=== PATIENT | female | born 1960 | race African-American/Black ===

== ENCOUNTER 2017-02-06 21:29 | Emergency (ER) | payer MEDICARE, OTHER ==
[~2017-02-06] VITALS: Ht 167.6 cm; Wt 63.5 kg
[~2017-02-06 21:29] MED LIST: BACITRACIN15 GM TOPIC; CEPHALEXIN500 MG ORAL; IBUPROFEN600 MG ORAL; NKM; NORCO 5-325 TA1 EAC1 ORAL
[2017-02-06 21:40] VITALS: BP 151/87
--- NOTE | 2017-02-06 21:55 | Emergency Room Report ---
History of Present Illness General Chief Complaint: Chest Pain Source: Patient Present Illness HPI Is a 56-year-old female with history of pelvic pain from her fibroid. She presents with chief complaint of chest patient's breath for 2 days. Midsternal area. No radiation. Nothing made it better. Nothing made it worse. No exertional component. No radiation. No diaphoresis. Pain is 8/10. Fell anxious. Denies any other complaint. Allergies: Coded Allergies: PENICILLINS (Unverified Allergy, Unknown, 02/06/17) Uncoded Allergies: PENECILLIN (Allergy, Unknown, 04/21/16) Patient History Past Medical History: see triage record, old chart reviewed Past Surgical History: other Pertinent Family History: none Social History: Denies: smoking Last Menstrual Period: NO MORE PERIOD Now: No Immunizations: other Reviewed Nursing Documentation: PMH: Agreed, PSxH: Agreed Review of Systems Eye: Denies: blurred vision, eye pain ENT: Denies: ear pain, nose congestion, throat swelling Respiratory: Reports: shortness of breath, Denies: cough Cardiovascular: Reports: chest pain, Denies: palpitations Gastrointestinal: Denies: abdominal pain, diarrhea, nausea, vomiting Musculoskeletal: Denies: back pain, joint pain Skin: Denies: rash Neurological: Denies: headache, numbness Endocrine: Denies: increased thirst, increased urine Hematologic/Lymphatic: Denies: easy bruising All Other Systems: negative except mentioned in HPI Physical Exam Vital Signs Date Time Temp Pulse Resp B/P Pulse Ox O2 Delivery O2 Flow Rate FiO2 02/06/17 21:34 98.6 80 18 151/87 98 Room Air vitals normal Sp02 EP Interpretation: reviewed, normal General Appearance: well appearing, no apparent distress, alert Head: normocephalic, atraumatic Eyes: bilateral eye EOMI, bilateral eye PERRL ENT: hearing grossly normal, normal pharynx Neck: full range of motion, supple, no meningismus Respiratory: chest non-tender, lungs clear, normal breath sounds Cardiovascular #1: regular rate, rhythm, no murmur Gastrointestinal: normal bowel sounds, non tender, no mass, no organomegaly, no bruit, non-distended Musculoskeletal: back normal, gait/station normal, normal range of motion Neurologic: alert, oriented x3 Psychiatric: anxious Skin: warm/dry Medical Decision Making Diagnostic Impression: Primary Impression: Chest pain Qualified Codes: R07.9 - Chest pain, unspecified ER Course She presents with chest pain also generalized pain she take his been ongoing for years. She is requesting Demerol shot. Explained to the patient that we do not give Demerol here in the ER. She then started asking for [place] 10 mg. she refused Ativan and aspirin. Only once pain medication. I gave her Toradol. patient is laying in bed comfortably. She asked the nurse for breathing treatment. I explained to the patient that her oxygenation is 100% on room air. Her lungs are clear. Her chest x-ray is clear. She has no respiratory distress or tachypnea. She does not need a breathing treatment. Because patient is not getting her pain medication or breathing treatment, she said she wants to leave. she is competent to leave AGAINST MEDICAL ADVICE. She is refusing to give a urine sample or taking the appropriate medication. Explained to the patient that she may have a serious condition that may be life- threatening. Patient keep insisting that she knows her body and wants breathing treatment. Again I see no clinical indication for this. patient left without signing paperwork. Her pain been ongoing for 2 days. I suspect is more anxiety component to this. Troponin negative. No evidence of ACS, PE, pneumonia,dissection to name a few. she has no risk factors for PE or DVT. She's not tachypneic or tachycardic. Nontoxic. Lab Results Impression labs normal EKG Diagnostic Results EKG Time: 21:55 Rate: normal Rhythm: NSR ST Segments: no acute changes Rhythm Strip Diag. Results Rhythm Strip Time: 21:55 EP Interpretation: yes Rate: 70 Rhythm: NSR, no PVC's, no ectopy Chest X-Ray Diagnostic Results Chest X-Ray Diagnostic Results : Chest X-Ray Ordered: Yes # of Views/Limited/Complete: 1 View Indication: Chest Pain EP Interpretation: Yes Interpretation: no consolidation, no effusion, no pneumothorax, no acute cardiopulmonary disease Impression: No acute disease Last Vital Signs Date Time Temp Pulse Resp B/P Pulse Ox O2 Delivery O2 Flow Rate FiO2 02/06/17 21:34 98.6 80 18 151/87 98 Room Air Status: improved Disposition: AGAINST MEDICAL ADVICE Condition: Stable CARMITA LOZA M.D. Feb 06, 2017 21:55
[2017-02-06] MEDS ORDERED: Aspirin Baby 81mg ORAL ONE (22:00)
[2017-02-06] MEDS ORDERED: LORazepam Inj 2mg/ml 1ml IV ONE (22:00)
[2017-02-06] MEDS ORDERED: Ketorolac 30mg Inj IV ONE (22:45)
[2017-02-06 23:14] VITALS: BP 151/87
[2017-02-06 23:26] LABS: BASOPHILS % (AUTO) 1.2 % (0.0-2.0); EOSINOPHILS % (AUTO) 0.6 % (0.0-3.0); LYMPHOCYTES % (AUTO) 26.4 % (20.0-45.0); MEAN CORPUSCULAR HEMOGLOBIN 29.1 PG (27.0-31.0); MEAN CORPUSCULAR HGB CONC 32.8 G/DL (32.0-36.0); MEAN CORPUSCULAR VOLUME 89 FL (80-99); MEAN PLATELET VOLUME 6.8 FL (6.5-10.1); MONOCYTES % (AUTO) 5.6 % (1.0-10.0); NEUTROPHILS % (AUTO) 66.3 % (45.0-75.0); PLATELET COUNT 219 K/UL (150-450); RED BLOOD COUNT 4.38 M/UL (4.20-5.40); RED CELL DISTRIBUTION WIDTH 14.1 % (11.6-14.8); WHITE BLOOD COUNT 7.6 K/UL (4.8-10.8)
[2017-02-06 23:53] LABS: TROPONIN I < 0.30 ng/mL (<=0.30)
[2017-02-06 23:56] LABS: ALANINE AMINOTRANSFERASE 13 U/L (3-33); ALBUMIN/GLOBULIN RATIO 1.7 (1.0-2.7); ANION GAP 11 (5-15); ASPARTATE AMINO TRANSFERASE 11 U/L (5-40); CALCIUM 9.6 mg/dL (8.6-10.2); CARBON DIOXIDE 29 mEQ/L (20-30); CHLORIDE 104 mEQ/L (98-107); GLOMERULAR FILTRATION RATE > 60 mL/min (>60); HEMOLYSIS 6; POTASSIUM 3.7 mEQ/L (3.4-4.9); SODIUM 144 mEQ/L (135-145); TOTAL PROTEIN 7.2 g/dL (6.6-8.7)
[2017-02-07 00:07] LABS: CKMB < 1.5 ng/mL (< 3.8)
--- NOTE | 2017-02-08 16:21 | Cardiology Report ---
APPROVED REPORT EKG Measurement Heart [id number] Normal sinus rhythm Nonspecific T wave abnormality Abnormal ECG
--- NOTE | 2017-02-10 09:02 | Diagnostic Imaging Report ---
Indication: Chest pain Technique: XRAY CHEST 1 V Comparison: None. Findings: The cardiomediastinal silhouette is normal. The lungs are clear. There is no evidence of pleural fluid. There is mild scoliosis of the thoracic spine convex to the right. Impression: Mild scoliosis convex to the right. This could be positional. Otherwise negative chest.
== END 2017-02-06 23:14 | disposition left against medical advice (07) ==
LOC: EMR 21:59
DX: R07.9 Chest pain, unspecified (principal); R52 Pain, unspecified; R06.02 Shortness of breath; Z88.0 Allergy status to penicillin
CPT/HCPCS: 36415; 71010; 80053; 82550; 82553; 83880; 84484; 85025; 93005; 96374; 99284; J1885

== ENCOUNTER 2018-04-22 01:31 | Emergency (ER) | payer MEDICARE, OTHER ==
[~2018-04-22] VITALS: Ht 165.1 cm; Wt 54.9 kg
[2018-04-22 01:40] VITALS: BP 183/93
--- NOTE | 2018-04-22 02:08 | Emergency Room Report ---
History of Present Illness General Chief Complaint: Earache Source: Patient Present Illness HPI Is a 58-year-old female with no past mental history. She presents with chief complaint right ear pain. His been ongoing for [address] stallings. She finished a course of [place] and isn't flushing it with hydroperoxide without much relief. Pain is 10 out of 10. Nothing made it better. Any movement made it worse. Denies any trauma. No drainage. This is a chronic problem for her. Allergies: Coded Allergies: PENICILLINS (Unverified Allergy, Unknown, 02/06/17) Uncoded Allergies: PENECILLIN (Allergy, Unknown, 04/21/16) Patient History Past Medical History: none, see triage record, old chart reviewed Past Surgical History: other Pertinent Family History: none Social History: Denies: smoking Last Menstrual Period: 2007 Now: No Immunizations: other Reviewed Nursing Documentation: PMH: Agreed; PSxH: Agreed Nursing Documentation-PMH Past Medical History: No Stated History Review of Systems Eye: Denies: eye pain, blurred vision ENT: Reports: ear pain; Denies: nose congestion, throat swelling Respiratory: Denies: cough, shortness of breath Cardiovascular: Denies: chest pain, palpitations Gastrointestinal: Denies: abdominal pain, diarrhea, nausea, vomiting Musculoskeletal: Denies: back pain, joint pain Skin: Denies: rash Neurological: Denies: headache, numbness Endocrine: Denies: increased thirst, increased urine Hematologic/Lymphatic: Denies: easy bruising All Other Systems: negative except mentioned in HPI Physical Exam Vital Signs Date Time Temp Pulse Resp B/P (MAP) Pulse Ox O2 Delivery O2 Flow Rate FiO2 04/22/18 01:40 98.6 66 16 183/93 98 Room Air 98.6 vitals with high blood pressure Sp02 EP Interpretation: reviewed, normal General Appearance: well appearing, alert, thin Head: normocephalic, atraumatic Eyes: bilateral eye PERRL, bilateral eye EOMI ENT: hearing grossly normal, normal pharynx, other - right ear impacted with cerumen Neck: full range of motion, supple, no meningismus Respiratory: chest non-tender, lungs clear, normal breath sounds Cardiovascular #1: regular rate, rhythm, no murmur Gastrointestinal: normal bowel sounds, non tender, no mass, no organomegaly, no bruit, non-distended Musculoskeletal: back normal, gait/station normal, normal range of motion Psychiatric: mood/affect normal Skin: warm/dry Procedures Additional Procedure Procedure Narrative Procedure: Cerumen disimpaction Indication: Cerumen impaction Description: I irrigated the ear with water. Large amount of cerumen removed. On reexamination the eardrum is erythematous. There is edema and maceration of the skin to the canal. No perforation. Patient tolerated procedure without a problem. Medical Decision Making Diagnostic Impression: Primary Impression: Otitis media of right ear Qualified Codes: H66.91 - Otitis media, unspecified, right ear Additional Impressions: Otitis externa of right ear Qualified Codes: H60.501 - Unspecified acute noninfective otitis externa, right ear Impacted cerumen of right ear ER Course Patient presents with cerumen impaction with otitis externa. There is some evidence of otitis media also. Patient felt much better now. We'll discharge home. Last Vital Signs Date Time Temp Pulse Resp B/P (MAP) Pulse Ox O2 Delivery O2 Flow Rate FiO2 04/22/18 01:40 98.6 66 16 183/93 98 Room Air 98.6 Status: improved Disposition: HOME, SELF-CARE Condition: Stable Scripts Ibuprofen* (MOTRIN*) 600 Mg Tablet 600 MG ORAL THREE TIMES A DAY, #30 TAB 0 Refills Prov: Yonis Lassiter MD 04/22/18 Ciprofloxacin Hcl/Dexameth (CIPRODEX OTIC SUSPENSION) 7.5 Ml Drops.susp 4 DROP RIGHT EAR TWICE A DAY, #10 ML Prov: Yonis Lassiter MD 04/22/18 Azithromycin* (ZITHROMAX*) 250 Mg Tablet 250 MG ORAL DAILY, #6 TAB 0 Refills Take two tables once daily for 1 day, then one tablet once daily for 4 days. Prov: Yonis Lassiter MD 04/22/18 Patient Instructions: Otitis Externa, [id number], Otitis Media, Adult, Easy- to-Read Additional Instructions: Follow-up with your doctor in 7 days. Return if symptom worsen. Yonis Lassiter MD Apr 22, 2018 02:08
[2018-04-22 02:30] VITALS: BP 143/90
[2018-04-22] MEDS ORDERED: Norco 5mg/325mg tab ORAL ONE (02:30)
[2018-04-22] MEDS ORDERED: IBUPROFEN600 MG ORAL (02:32)
[2018-04-22] MEDS ORDERED: ZITHROMAX250 MG ORAL (02:32)
[2018-04-22] MEDS ORDERED: CIPRODEX OTIC7.5 M1 RIGHT EAR (02:32)
== END 2018-04-22 02:45 | disposition home or self-care (01) ==
LOC: EMR 02:00 → EDBD 02:00 → EMR 02:45
DX: H66.91 Otitis media, unspecified, right ear (principal); H60.91 Unspecified otitis externa, right ear; H61.21 Impacted cerumen, right ear; Z88.0 Allergy status to penicillin
CPT/HCPCS: 69210; 99283

== ENCOUNTER 2019-08-10 18:20 | Inpatient (IN) | payer MEDICARE, OTHER ==
[~2019-08-10] VITALS: Ht 165.1 cm; Wt 62.9 kg
[~2019-08-10 18:20] MED LIST changes: +CIPRODEX OTIC7.5 M1 RIGHT EAR; +NORCO 5-325 TA1 EACH ORAL; +PROMETHAZINE-D118 ML ORAL; +ZITHROMAX250 MG ORAL
[2019-08-10 18:35] VITALS: BP 139/81
--- NOTE | 2019-08-10 18:35 | NUR ---
ED Nurse Note: PT WALKED IN FROM HER DOCTOR'S OFFICE DUE TO MEDIAL CP AND NON RADIATING X 3-4 DAYS. ALSO REPORTS LIGHTHEADEDNESS AND FEELING WEAK. STATES EPISODES OF N/V. AAO X4, AMBULATORY WITH NON LABORED BREATHING.
--- NOTE | 2019-08-10 18:41 | Emergency Room Report ---
History of Present Illness General Chief Complaint: Chest Pain Source: Patient Present Illness HPI 60-year-old female history of hypertension history of smoking history times years, presents with cough, shortness of breath, sputum production, chest pain x3 days worsened with exertion alleviated with rest severity is moderate, constant, she states the pain is left-sided tightness no nausea no vomiting patient was sent from her primary care doctor today due to depressions in her inferior leads concerning for ischemic disease Allergies: Coded Allergies: PENICILLINS (Unverified Allergy, Unknown, 02/06/17) Uncoded Allergies: PENECILLIN (Allergy, Unknown, 04/21/16) Patient History Past Medical History: see triage record Social History: Reports: smoking Reviewed Nursing Documentation: PMH: Agreed; PSxH: Agreed Nursing Documentation-PMH Past Medical History: No History, Except For Hx Neurological Problems: Yes - SCHIZO, DEPRESSION Review of Systems All Other Systems: negative except mentioned in HPI Physical Exam Vital Signs Date Time Temp Pulse Resp B/P (MAP) Pulse Ox O2 Delivery O2 Flow Rate FiO2 08/10/19 18:25 97.5 86 19 117/72 (87) 95 Room Air Sp02 EP Interpretation: reviewed, normal General Appearance: well appearing, no apparent distress, alert Head: normocephalic, atraumatic Eyes: bilateral eye PERRL, bilateral eye EOMI ENT: uvula midline, moist mucus membranes Neck: supple, thyroid normal, supple/symm/no masses Respiratory: lungs clear, no respiratory distress, no retraction, no accessory muscle use Cardiovascular #1: normal peripheral pulses, regular rate, rhythm, no edema, no gallop, no murmur Gastrointestinal: non tender, soft, no guarding, no rebound Musculoskeletal: normal inspection Neurologic: alert, oriented x3 Psychiatric: mood/affect normal Skin: no rash, warm/dry Medical Decision Making Diagnostic Impression: Primary Impression: Chest pain Qualified Codes: R07.9 - Chest pain, unspecified Additional Impression: COPD with exacerbation ER Course 60-year-old female presents with chest pain differential diagnosis include COPD exacerbation, ACS, pneumothorax, pneumonia Patient makes most likely with a mixed picture given the fact that she is been sick over the past 3 days may have some form of demand ischemia patient with dynamic changes on EKG comparing current EKG to clinic EKG there are dynamic changes in 2 3 aVF With depressions resolving in current EKG conducted at 1836 aspirin, steroids, Duo nebs given to the patient nitroglycerin also given to patient Plan to admit patient for chest pain rule out Patient admitted to Dr. Babin Laboratory Tests Test 08/10/19 18:40 White Blood Count 4.1 K/UL (4.8-10.8) L Red Blood Count 5.07 M/UL (4.20-5.40) Hemoglobin 13.9 G/DL (12.0-16.0) Hematocrit 45.3 % (37.0-47.0) Mean Corpuscular Volume 89 FL (80-99) Mean Corpuscular Hemoglobin 27.4 PG (27.0-31.0) Mean Corpuscular Hemoglobin Concent 30.6 G/DL (32.0-36.0) L Red Cell Distribution Width 13.9 % (11.6-14.8) Platelet Count 192 K/UL (150-450) Mean Platelet Volume 8.1 FL (6.5-10.1) Neutrophils (%) (Auto) 63.5 % (45.0-75.0) Lymphocytes (%) (Auto) 19.4 % (20.0-45.0) L Monocytes (%) (Auto) 14.9 % (1.0-10.0) H Eosinophils (%) (Auto) 0.0 % (0.0-3.0) Basophils (%) (Auto) 2.2 % (0.0-2.0) H Prothrombin Time 10.1 SEC (9.30-11.50) Prothrombin Time INR 0.9 (0.9-1.1) Activated Partial Thromboplast Time 29 SEC (23-33) Sodium Level 137 MMOL/L (136-145) Potassium Level 3.9 MMOL/L (3.5-5.1) Chloride Level 98 MMOL/L (98-107) Carbon Dioxide Level 27 MMOL/L (21-32) Anion Gap 12 mmol/L (5-15) Blood Urea Nitrogen 28 mg/dL (7-18) H Creatinine 2.6 MG/DL (0.55-1.30) H Estimate Glomerular Filtration Rate 22.5 mL/min (>60) Glucose Level 119 MG/DL (74-106) H Calcium Level 9.4 MG/DL (8.5-10.1) Total Bilirubin 0.4 MG/DL (0.2-1.0) Aspartate Amino Transferase (AST) 20 U/L (15-37) Alanine Aminotransferase (ALT) 36 U/L (12-78) Alkaline Phosphatase 66 U/L (46-116) Troponin I 0.000 ng/mL (0.000-0.056) Pro-B-Type Natriuretic Peptide 117 pg/mL (0-125) Total Protein 8.2 G/DL (6.4-8.2) Albumin 4.2 G/DL (3.4-5.0) Globulin 4.0 g/dL Albumin/Globulin Ratio 1.0 (1.0-2.7) Lipase 121 U/L (73-393) EKG Diagnostic Results EKG Time: 18:36 EP Interpretation: NSR, rate 75, QTc 393, no acute ST elevations, flipped T waves in 3 and aVF Rhythm Strip Diag. Results Rhythm Strip Time: 18:40 EP Interpretation: yes Rate: 73 Rhythm: NSR, no PVC's, no ectopy Chest X-Ray Diagnostic Results Chest X-Ray Diagnostic Results : Chest X-Ray Ordered: Yes # of Views/Limited/Complete: 1 View Indication: Chest Pain EP Interpretation: Yes Interpretation: no consolidation, no effusion, no pneumothorax, no acute cardiopulmonary disease Impression: No acute disease Electronically Signed by: Jose Manuel Zapien MD Last Vital Signs Date Time Temp Pulse Resp B/P (MAP) Pulse Ox O2 Delivery O2 Flow Rate FiO2 08/10/19 18:25 97.5 86 19 117/72 (87) 95 Room Air Disposition: ADMITTED INPATIENT Condition: Stable Jose Manuel Zapien MD Aug 10, 2019 18:41
--- NOTE | 2019-08-10 18:41 | NUR ---
ED Nurse Note: COLLECTED BLOOD SPECIMEN THEN SENT.
[2019-08-10] MEDS ORDERED: fentaNYL 100 mcg/2 mL IV ONE (18:45)
[2019-08-10] MEDS ORDERED: Ipratropium 0.02% Inh Soln 2.5ml UD HHN ONE (18:45)
[2019-08-10] MEDS ORDERED: Albuterol ud Inhalation HHN ONE (18:45)
[2019-08-10] MEDS ORDERED: Solu-MEDROL 125mg Inj IVP ONE (18:45)
[2019-08-10] MEDS ORDERED: Nitroglycerin 2% oint pkt TOPIC ONE (18:45)
[2019-08-10 18:54] LABS: BASOPHILS % (AUTO) 2.2 % (0.0-2.0); HEMATOCRIT 45.3 % (37.0-47.0); HEMOGLOBIN 13.9 G/DL (12.0-16.0); LYMPHOCYTES % (AUTO) 19.4 % (20.0-45.0); MEAN CORPUSCULAR VOLUME 89 FL (80-99); MONOCYTES % (AUTO) 14.9 % (1.0-10.0); NEUTROPHILS % (AUTO) 63.5 % (45.0-75.0); PLATELET COUNT 192 K/UL (150-450); RED BLOOD COUNT 5.07 M/UL (4.20-5.40); RED CELL DISTRIBUTION WIDTH 13.9 % (11.6-14.8); WHITE BLOOD COUNT 4.1 K/UL (4.8-10.8)
[2019-08-10 19:04] LABS: INR 0.9 (0.9-1.1)
[2019-08-10 19:18] LABS: ANION GAP 12 mmol/L (5-15); BLOOD UREA NITROGEN 28 mg/dL (7-18); CALCIUM 9.4 MG/DL (8.5-10.1); CARBON DIOXIDE 27 MMOL/L (21-32); CHLORIDE 98 MMOL/L (98-107); CREATININE 2.6 MG/DL (0.55-1.30); POTASSIUM 3.9 MMOL/L (3.5-5.1); SODIUM 137 MMOL/L (136-145)
--- NOTE | 2019-08-10 19:21 | NUR ---
HAND-OFF: Report given to MITCHEL ROBERTS RN.
--- NOTE | 2019-08-10 19:22 | NUR ---
ED Nurse Note: received report from Nayana WINTER. emory bull. will continue to monitor patient.
[2019-08-10 19:28] LABS: ALANINE AMINOTRANSFERASE 36 U/L (12-78); ALBUMIN 4.2 G/DL (3.4-5.0); ALKALINE PHOSPHATASE 66 U/L (46-116); ASPARTATE AMINO TRANSFERASE 20 U/L (15-37); BILIRUBIN,TOTAL 0.4 MG/DL (0.2-1.0)
[2019-08-10 19:53] VITALS: BP 133/74
--- NOTE | 2019-08-10 20:02 | NUR ---
ED Nurse Note: provided patient with sandwich
[2019-08-10] MEDS ORDERED: ASPIR 8181 MG ORAL (20:09)
--- NOTE | 2019-08-10 20:20 | NUR ---
ED Nurse Note: patient c/o 8/10 pain and requested for pain medication. ERMD notified. Will carry out order.
[2019-08-10] MEDS ORDERED: Morphine Sulfate 4mg/ml Inj (IV USE ONLY) IVP ONE (20:30)
--- NOTE | 2019-08-10 20:47 | NUR ---
ED Nurse Note: gave report to Jarod WINTER for 219-1.
--- NOTE | 2019-08-10 20:50 | NUR ---
NURSE NOTES: Received patient from ED. Patient on room air, no signs of respiratory distress. O2sat 93%. Patient transferred herself safely to bed. Oriented patient to the unit. Call light within reach. Bed in low position, locked, bed alarm on. Patient is alert but oriented to self, place and situation. Patient endorses memory difficulties and could not remember the year or the day of the week. Poor historian. Could not recall prescribed medications. Denies taking any medications at home. According letter from family physician's office, patient has a history of schizophrenia, depression, benign colon polyps, and pelvic fibroid. Current Medications are seroquel, prozac, and norco.
--- NOTE | 2019-08-10 20:50 | NUR ---
TRANSFER TO FLOOR: Patient transferred to [facility] via gurney in stable condition accompanied by 1 rn 1tech as ordered, per dr. Babin. Report given to Jarod WINTER. Belongings sent with patient
[2019-08-10 21:10] VITALS: BP 151/87
--- NOTE | 2019-08-10 21:15 | NUR ---
NURSE NOTES: Received admitting orders from Dr. Babin, ordered to place on 2L NC. Administered O2 at 2L NC.
[2019-08-10] MEDS: HYDROcodone/Acetamin 10/325 tab ORAL PRN (22:37)
[2019-08-11] VITALS: BP 149/64
[2019-08-11] MEDS: HYDROcodone/Acetamin 10/325 tab ORAL PRN ×3 (03:04→15:24)
--- NOTE | 2019-08-11 03:15 | NUR ---
NURSE NOTES: Patient upset and complained that nobody is doing anything about her cold. States that is the reason she came in. Patient complains of painful cough and difficulty clearing secretions and wants cough medicine with codeine. Notified Dr. Babin requesting cough syrup with codeine for the patient.
[2019-08-11 04:00] VITALS: BP 146/79
--- NOTE | 2019-08-11 04:13 | NUR ---
NURSE NOTES: Left another message for Dr. Babin requesting orders.
[2019-08-11] MEDS ORDERED: Albuterol ud Inhalation HHN PRN (05:45)
[2019-08-11] MEDS: guaiFENesin w/Codeine 5ml Liq ud ORAL PRN ×2 (06:03→15:23)
--- NOTE | 2019-08-11 06:30 | NUR ---
NURSE NOTES: Notified Dr. Villavicencio, stat echo ordered.
--- NOTE | 2019-08-11 06:47 | NUR ---
NURSE NOTES: Notified Dr. Babin regarding abnormal ECG this morning, sinus ted HR 44. Instructed to do consult with Dr. Villavicencio.
--- NOTE | 2019-08-11 07:09 | NUR ---
HAND-OFF: Report given to Sherry WINTER. Plan of care endorsed.
--- NOTE | 2019-08-11 07:10 | NUR ---
NURSE NOTES: Nurse report give by MOY Olivera. Patient's sitting in bed, eating breakfast, eyes open spontaneously, AO x 3, complains of sore throat, but no s/s of distress or SOB. Patient's on 2L nasal cannula, breathing unlabored and regular. IV is saline locked, flushed patent and asymptomatic. Bed low and locked, call light within reach, side rails x 2, bed alarm is armed, financial agent is on. Will continue to monitor.
[2019-08-11 07:11] LABS: ANION GAP 10 mmol/L (5-15); BLOOD UREA NITROGEN 27 mg/dL (7-18); CALCIUM 9.2 MG/DL (8.5-10.1); CARBON DIOXIDE 27 MMOL/L (21-32); CHLORIDE 104 MMOL/L (98-107); CREATININE 1.5 MG/DL (0.55-1.30); POTASSIUM 4.1 MMOL/L (3.5-5.1); SODIUM 141 MMOL/L (136-145)
[2019-08-11 08:00] VITALS: BP 122/70
[2019-08-11] MEDS: Aspirin Baby 81mg ORAL SCH (08:44)
[2019-08-11] MEDS: FLUoxetine 10mg cap ORAL SCH (08:44)
[2019-08-11] MEDS: Heparin 5000 units/ml inj SUBQ SCH ×2 (08:50→20:45)
--- NOTE | 2019-08-11 09:37 | Cardiac Electrophysiology PN ---
Subjective Subjective CP, ECG inferior T wave inversion, bradycardia [id number] Objective Last 24 Hour Vital Signs Date Time Temp Pulse Resp B/P (MAP) Pulse Ox O2 Delivery O2 Flow Rate FiO2 08/11/19 09:27 98.1 08/11/19 08:00 98.1 59 18 122/70 (87) 100 08/11/19 08:00 59 08/11/19 04:00 54 08/11/19 04:00 98.0 78 18 146/79 (101) 97 08/11/19 00:00 64 08/11/19 00:00 98.1 60 18 149/64 (92) 97 08/10/19 21:41 67 08/10/19 21:10 97.5 75 20 151/87 (108) 93 08/10/19 21:00 Nasal Cannula 2.0 Nasal Cannula 2.0 08/10/19 20:50 98.3 74 15 133/74 98 Room Air 08/10/19 19:53 97.7 75 15 133/74 98 Room Air 21 08/10/19 19:30 97.7 08/10/19 19:14 75 12 98 Room Air 21 08/10/19 18:57 139/81 08/10/19 18:53 75 12 Room Air 21 08/10/19 18:35 97.5 74 16 139/81 99 Room Air 08/10/19 18:35 74 16 Room Air 08/10/19 18:25 97.5 86 19 117/72 (87) 95 Room Air Intake and Output 08/10/19 08/11/19 19:00 07:00 Intake Total 1000 ml Balance 1000 ml IV Total 1000 ml # Voids 2 Laboratory Tests Test 08/10/19 18:40 08/10/19 19:50 08/11/19 06:31 White Blood Count 4.1 K/UL (4.8-10.8) L Red Blood Count 5.07 M/UL (4.20-5.40) Hemoglobin 13.9 G/DL (12.0-16.0) Hematocrit 45.3 % (37.0-47.0) Mean Corpuscular Volume 89 FL (80-99) Mean Corpuscular Hemoglobin 27.4 PG (27.0-31.0) Mean Corpuscular Hemoglobin Concent 30.6 G/DL (32.0-36.0) L Red Cell Distribution Width 13.9 % (11.6-14.8) Platelet Count 192 K/UL (150-450) Mean Platelet Volume 8.1 FL (6.5-10.1) Neutrophils (%) (Auto) 63.5 % (45.0-75.0) Lymphocytes (%) (Auto) 19.4 % (20.0-45.0) L Monocytes (%) (Auto) 14.9 % (1.0-10.0) H Eosinophils (%) (Auto) 0.0 % (0.0-3.0) Basophils (%) (Auto) 2.2 % (0.0-2.0) H Prothrombin Time 10.1 SEC (9.30-11.50) Prothromb Time International Ratio 0.9 (0.9-1.1) Activated Partial Thromboplast Time 29 SEC (23-33) Sodium Level 137 MMOL/L (136-145) 141 MMOL/L (136-145) Potassium Level 3.9 MMOL/L (3.5-5.1) 4.1 MMOL/L (3.5-5.1) Chloride Level 98 MMOL/L (98-107) 104 MMOL/L (98-107) Carbon Dioxide Level 27 MMOL/L (21-32) 27 MMOL/L (21-32) Anion Gap 12 mmol/L (5-15) 10 mmol/L (5-15) Blood Urea Nitrogen 28 mg/dL (7-18) H 27 mg/dL (7-18) H Creatinine 2.6 MG/DL (0.55-1.30) H 1.5 MG/DL (0.55-1.30) H Estimat Glomerular Filtration Rate 22.5 mL/min (>60) 42.7 mL/min (>60) Glucose Level 119 MG/DL (74-106) H 142 MG/DL (74-106) H Calcium Level 9.4 MG/DL (8.5-10.1) 9.2 MG/DL (8.5-10.1) Total Bilirubin 0.4 MG/DL (0.2-1.0) Aspartate Amino Transf (AST/SGOT) 20 U/L (15-37) Alanine Aminotransferase (ALT/SGPT) 36 U/L (12-78) Alkaline Phosphatase 66 U/L (46-116) Troponin I 0.000 ng/mL (0.000-0.056) 0.000 ng/mL (0.000-0.056) Pro-B-Type Natriuretic Peptide 117 pg/mL (0-125) Total Protein 8.2 G/DL (6.4-8.2) Albumin 4.2 G/DL (3.4-5.0) Globulin 4.0 g/dL Albumin/Globulin Ratio 1.0 (1.0-2.7) Lipase 121 U/L (73-393) Urine Opiates Screen Negative (NEGATIVE) Urine Barbiturates Screen Negative (NEGATIVE) Phencyclidine (PCP) Screen Negative (NEGATIVE) Urine Amphetamines Screen Negative (NEGATIVE) Urine Benzodiazepines Screen Negative (NEGATIVE) Urine Cocaine Screen Negative (NEGATIVE) Urine Marijuana (THC) Screen Positive (NEGATIVE) Alvaro Marie MD Aug 11, 2019 09:37
[2019-08-11] MEDS ORDERED: Lexiscan 0.4mg/5ml syringe IV PRN (09:45)
--- NOTE | 2019-08-11 09:59 | NUR ---
CASE MANAGEMENT: INITIAL REVIEW 60YR OLD FEMALE FROM DOCTOR'S OFFICE CC: CHEST PAIN SI:CHEST PAIN . COPD WITH EXACERBATION 97.5 86 19 117/72 95% ON RA BUN 28 CREAT 2.6 TROP (-) IS:IVF NS BOLUS X1 IV SOLU-MEDROL X1 IV PROVENTIL HHN X1 ATROVENT HHN X1 ASPIRIN PO X1 NITRO-BID TP X1 IV ZOFRAN X1 IV FENTANYL X1 \: 2E TELE UNIT DCP: HOME WHEN STABLE PLAN: EKG TROP NM STRESS TEST 2D ECHO CASE MANAGEMENT: REVIEW 08/11/2019 SI:CHEST PAIN . COPD WITH EXACERBATION 98.1 59 18 122/70 100% ON 2L NC BUN 27 CREAT 1.5 BG 142 TROP (-) IS:SEROQUEL PO QD HEPARIN PO BID PROZAC PO QD PROTONIX PO QAC ROBITUSSIN PO Q4HR/PRN \: 2E TELE UNIT DCP: HOME WHEN STABLE PLAN: NM STRESS TEST 2D ECHO
[2019-08-11 12:00] VITALS: BP 95/54
--- NOTE | 2019-08-11 13:14 | NUR ---
HAND-OFF: Report given to MOY Guillaume. Patient's stable, plan of care endorsed.
--- NOTE | 2019-08-11 13:45 | Diagnostic Imaging Report ---
Indication: Dyspnea Comparison: 02/06/2017 A single view chest radiograph was obtained. Findings: No definite infiltrate or pulmonary vascular congestion identified. The heart is enlarged. The aorta is mildly enlarged consistent with atherosclerotic vascular disease. The bones are osteopenic. Impression: No acute disease
--- NOTE | 2019-08-11 14:00 | NUR ---
RESPIRATORY NOTE: Patient refused ABG at this time. MOY Guillaume notified.
--- NOTE | 2019-08-11 15:45 | History and Physical Report ---
DATE OF ADMISSION: 08/10/2019 REASON FOR ADMISSION: Chest pain, cough. HISTORY OF PRESENT ILLNESS: This is a 60-year-old female, history of high blood pressure, history of smoking. The patient presents with cough, shortness of breath, sputum production. The patient also has significant chest pain with some left-sided chest tightness as well. The patient is admitted for further care and management and further evaluation. The patient is seen in the emergency room. The patient's laboratory data reviewed and discussed. Troponins initially are essentially negative. The patient notes cough and still has chest discomfort. The patient had EKG changes with ST-T wave depressions in the inferior leads. The patient has no history of coronary artery disease and no history of cardiomyopathy. PAST MEDICAL HISTORY: Notable for the above. History of schizophrenia, history of depression. MEDICATIONS: Reviewed. ALLERGIES: Reviewed. SOCIAL HISTORY: The patient does not smoke. She does not drink. She is disabled. FAMILY HISTORY: Otherwise negative and noncontributory as above. REVIEW OF SYSTEMS: All 10 points reviewed and otherwise negative. PHYSICAL EXAMINATION: GENERAL: A well-developed female. VITAL SIGNS: Reviewed. Blood pressure 146/79, pulse 54, temperature 98, respiratory rate 20, saturations 97%. HEENT: Overall negative. Extraocular movements are grossly intact. Oropharynx is moist. LUNGS: Fairly clear and symmetric. No rhonchi or wheezes. CARDIAC: S1 and S2. Regular rate and rhythm without murmurs, rubs, gallops. ABDOMEN: Soft, nontender, nondistended. EXTREMITIES: No cyanosis, clubbing, or edema. NEUROLOGIC: Grossly nonfocal. Slightly agitated. LABORATORY AND DIAGNOSTIC DATA: Reviewed. BUN 27, creatinine 1.5. Liver enzymes normal. Troponins are negative. White count 4.1, platelets are 192,000. EKG changes noted and reviewed. IMPRESSION: 1. Cough. 2. Congestion. 3. Chest pain. 4. Scoliosis. 5. Schizophrenia. RECOMMENDATIONS: 1. Resume medications. 2. Antidepressant and antipsychotics. 3. Cough suppressant. 4. DVT prophylaxis. 5. Cardiology evaluation. 6. Pain control management. 7. Monitor for respiratory distress, nebulized therapy and will assist with disposition once cleared and evaluated by Cardiology. Jin Babin M.D. DR: SANJUANITA JOB#: [id number] CC:
[2019-08-11 16:00] VITALS: BP 99/59
--- NOTE | 2019-08-11 16:15 | Consultation ---
DATE OF CONSULTATION: 08/11/2019 CARDIOLOGY CONSULTATION CONSULTING PHYSICIAN: Alvaro Villavicencio M.D. REFERRING PHYSICIAN: Jin Babin M.D. REASON FOR CONSULTATION: Chest pain and bradycardia. HISTORY OF PRESENT ILLNESS: The patient is a 60-year-old lady with history of hypertension and smoking history, presented to emergency room for shortness of breath and cough as well as sputum production. The patient also complained of chest pain that was worsened with exertion, relieved with rest. The pain was left-sided. Did not have any nausea, vomiting, or diaphoresis. The patient was sent from primary care's office for abnormal EKG with T inversion in inferior leads. At the time of my evaluation, the patient denies any chest pain or shortness of breath. REVIEW OF SYSTEMS: Negative other than what was mentioned in history of present illness. PAST MEDICAL HISTORY: As mentioned above. FAMILY HISTORY: Noncontributory. SOCIAL HISTORY: She lives at home. Has history of smoking in the past. PHYSICAL EXAMINATION: VITAL SIGNS: Show blood pressure of 122/70, pulse is 59, respirations 18, and she is afebrile. HEAD AND NECK: Showed no JVD or carotid bruits. LUNGS: Clear. CARDIOVASCULAR: Shows regular S1 and S2 with no gallop or murmur. ABDOMEN: Soft. EXTREMITIES: No pitting edema. LABORATORY DATA: Labs show white count of 4.1, hematocrit of 14, hematocrit 45, platelet count is 192. Sodium 141, potassium 4.0, BUN of 27, creatinine 1.5. Initial BUN was 28 and creatinine of 2.6. Glucose is 142. Troponin negative x2. Urine toxicology screen is positive for marijuana. ASSESSMENT AND PLAN: 1. Chest pain. The patient already ruled out for myocardial infarction. However, EKG has inferior T-wave inversion. The duration of which is not clear. We will schedule the patient for her echocardiogram as well as nuclear stress test. In the meantime, keep the patient on aspirin and check fasting lipid profile. 2. Bradycardia. Heart rate was 44 on a 12-lead EKG at 6:15 today, sinus bradycardia. We will watch the patient on telemetry. Avoid any AV ekta chauncey. 3. History of depression, on Prozac and Seroquel. Thank you very much, Dr. Babin, for allowing me to participate in the care of this patient. Please do not hesitate to contact me for any questions regarding my evaluation. Alvaro Villavicencio M.D. DR: REKHA JOB#: [id number] CC:
--- NOTE | 2019-08-11 19:15 | NUR ---
NURSE NOTES: Received pt and report from MOY Guillaume. Observed pt resting in bed with both closed; arousable to voice. Pt is A/Ox4. monitoring engineer is in placed; pt is NSR. IV site intact, symptomatic and patent. Bed is in the lowest position and locked. Call light and bedside table is within reach. Pt will be NPO at midnight for cardiac stress test tomorrow. No signs/symptoms of acute distress noted at this time. Will continue plan of care.
[2019-08-11 20:00] VITALS: BP 98/52
--- NOTE | 2019-08-11 20:46 | NUR ---
NURSE NOTES: Pt refused Heparin 5000 units subQ. Educated the pt on the importance and benefits of receiving the drug. Pt continued to refuse stating, "Oh no, I don't want it. It hurts too much." Will monitor pt.
[2019-08-11] MEDS: LORazepam 1mg tab ORAL PRN (21:27)
[2019-08-12] VITALS: BP 101/56
[2019-08-12] MEDS: HYDROcodone/Acetamin 10/325 tab ORAL PRN ×4 (00:32→23:27)
[2019-08-12 04:00] VITALS: BP 108/76
--- NOTE | 2019-08-12 07:24 | NUR ---
HAND-OFF: Report given to MOY Guillaume. Plan of care endorsed.
[2019-08-12 07:42] LABS: CHOLESTEROL 134 MG/DL (< 200); HDL CHOLESTEROL 51 MG/DL (40-60); TRIGLYCERIDES 142 MG/DL (30-150)
[2019-08-12 08:00] VITALS: BP 113/56
[2019-08-12] MEDS: Heparin 5000 units/ml inj SUBQ SCH ×3 (09:00→21:00)
[2019-08-12] MEDS: FLUoxetine 10mg cap ORAL SCH (09:54)
[2019-08-12] MEDS: Aspirin Baby 81mg ORAL SCH (09:54)
--- NOTE | 2019-08-12 10:04 | NUR ---
CASE MANAGEMENT:REVIEW 08/12/19 SI: CHEST PAIN. BRADYCARDIA 97.5 53 18 113/56 2L/NC IS: IV LEXISCAN X1 ASA PO QD SEROQUEL PO QD PROZAC PO QD HEPARIN SQ Q12 : TELEMETRY STATUS DCP: FROM HOME PLAN: STRESS TEST FOR TODAY
--- NOTE | 2019-08-12 10:26 | Cardiac Electrophysiology PN ---
Assessment/Plan Assessment/Plan 1. Chest pain. Already ruled out for myocardial infarction. However, EKG has inferior T-wave inversion. The duration of which is not clear. Echocardiogram EF 60%. Awaiting nuclear stress test today. Continue aspirin. LDL only 59. No need for statin 2. Bradycardia. Heart rate was 44 on a 12-lead EKG at 6:15 today, sinus bradycardia. No further ted on telemetry. Avoid any AV ekta chauncey. 3. History of depression, on Prozac and Seroquel. Subjective Subjective No CP, Refusing sq heparin Objective Last 24 Hour Vital Signs Date Time Temp Pulse Resp B/P (MAP) Pulse Ox O2 Delivery O2 Flow Rate FiO2 08/12/19 08:00 97.5 53 18 113/56 (75) 100 08/12/19 04:00 53 08/12/19 04:00 98.8 63 18 108/76 (87) 96 08/12/19 00:00 59 08/12/19 00:00 97.7 60 19 101/56 (71) 95 08/11/19 21:00 Nasal Cannula 2.0 Nasal Cannula 2.0 08/11/19 20:00 62 08/11/19 20:00 97.9 65 17 98/52 (67) 100 08/11/19 16:00 71 08/11/19 16:00 98.2 60 20 99/59 (72) 99 08/11/19 12:00 52 08/11/19 12:00 98.0 60 16 95/54 (68) 99 Intake and Output 08/11/19 08/12/19 19:00 07:00 # Voids 3 1 Laboratory Tests Test 08/12/19 06:10 Pro-B-Type Natriuretic Peptide 29 pg/mL (0-125) Triglycerides Level 142 MG/DL (30-150) Cholesterol Level 134 MG/DL (< 200) LDL Cholesterol 59 mg/dL (<100) HDL Cholesterol 51 MG/DL (40-60) Cholesterol/HDL Ratio 2.6 (3.3-4.4) L Thyroid Stimulating Hormone (TSH) 3.046 uiU/mL (0.358-3.740) Free Thyroxine 1.30 NG/DL (0.76-1.46) Objective HEAD AND NECK: No JVD or carotid bruits. LUNGS: Clear. CARDIOVASCULAR: Regular S1 and S2 with no gallop or murmur. ABDOMEN: Soft. EXTREMITIES: No pitting edema. Alvaro Villavicencio MD Aug 12, 2019 10:26
--- NOTE | 2019-08-12 15:30 | Diagnostic Imaging Report ---
Indication: chest pain Technique: The study was conducted under the supervision of a field producer. lexiscan (regadenoson) infusion over 10 seconds followed by intravenous administration of 32.8 mCi of technetium 99m Myoview was performed. Three plane SPECT imaging of the heart was then performed. A resting study was performed as part of the one-day protocol with 10.5 mCi of technetium 99m myoview injected intravenously at that time. Three plane SPECT imaging of the heart was obtained. Comparison: None Clinical data: 1. Clinical response: Non ischemic 2. Electrocardiographic response: Non ischemic Findings: The myocardial perfusion scan demonstrates no definite fixed or reversible perfusion defects. LVEF is estimated at 74%. IMPRESSION: Negative myocardial perfusion scan. Note: Estimation of LVEF on this examination is likely inaccurate. In our experience, the calculated LVEF is usually overestimated on this software program.
[2019-08-12 16:00] VITALS: BP 91/56
--- NOTE | 2019-08-12 16:37 | General Progress Note ---
Assessment/Plan Assessment/Plan: IMPRESSION: 1. Cough. 2. Congestion. 3. Chest pain. 4. Scoliosis. 5. Schizophrenia. PLAN CARE NOTED NEGATIVE CARDIAC STRESS DC HOME D/W CARDIOLOGY OUTPATIENT FOLLOW UP MONITOR FOR CHANGE HAVE PATIENT FOLLOW UP FOR PFT AFTER DC impression, plan, and exam edited and reviewed in detail care discussed with RN Subjective Allergies: Coded Allergies: PENICILLINS (Unverified Allergy, Unknown, 02/06/17) Uncoded Allergies: PENECILLIN (Allergy, Unknown, 04/21/16) Subjective patient seen earlier negative myocardial perfusion scan Objective Last 24 Hour Vital Signs Date Time Temp Pulse Resp B/P (MAP) Pulse Ox O2 Delivery O2 Flow Rate FiO2 08/12/19 16:00 64 08/12/19 16:00 96.8 60 18 91/56 (68) 99 08/12/19 15:59 65 20 98 Nasal Cannula 2.0 28 08/12/19 15:59 68 18 100 Nasal Cannula 2.0 28 65 20 98 08/12/19 12:00 60 08/12/19 10:25 97.5 08/12/19 09:00 Nasal Cannula 2.0 Nasal Cannula 2.0 08/12/19 08:00 56 08/12/19 08:00 97.5 53 18 113/56 (75) 100 08/12/19 04:00 53 08/12/19 04:00 98.8 63 18 108/76 (87) 96 08/12/19 00:00 59 08/12/19 00:00 97.7 60 19 101/56 (71) 95 08/11/19 21:00 Nasal Cannula 2.0 Nasal Cannula 2.0 08/11/19 20:00 62 08/11/19 20:00 97.9 65 17 98/52 (67) 100 Intake and Output 08/11/19 08/12/19 19:00 07:00 # Voids 3 1 Laboratory Tests 08/12/19 06:10: Pro-B-Type Natriuretic Peptide 29, Triglycerides Level 142, Cholesterol Level 134, LDL Cholesterol 59, HDL Cholesterol 51, Cholesterol/HDL Ratio 2.6L, Thyroid Stimulating Hormone (TSH) 3.046, Free Thyroxine 1.30 Height (Feet): 5 Height (Inches): 5.00 Weight (Pounds): 138 Objective WDWN NAD clear breath sounds bilaterally without rhonchi or wheeze [id number] without MRG NABS nontender no HSM no CCE nonfocal Jin Babin MD Aug 12, 2019 16:37
--- NOTE | 2019-08-12 16:48 | NUR ---
*-* DISCHARGE PLANNING *-* PATIENT HAS BEEN REFERRED TO: EM[facility] [address] [email or web address]
--- NOTE | 2019-08-12 16:54 | NUR ---
PATIENT WILL BE D/C HOME WITH HOME HEALTH TOMORROW H&P FAXED TO [facility] BY MANAGER OPERATIONAL
[2019-08-12] MEDS: guaiFENesin w/Codeine 5ml Liq ud ORAL PRN ×2 (18:32→23:25)
[2019-08-12 20:00] VITALS: BP 101/55
--- NOTE | 2019-08-12 20:00 | NUR ---
NURSE NOTES: Received pt and report from MOY Guillaume. Pt is A/Ox4. IV site intact, symptomatic and patent. Bed is in the lowest position and locked. Call light and bedside table is within reach. No signs/symptoms of acute distress noted at this time. Will continue plan of care.
[2019-08-13 02:00] VITALS: BP 131/65
[2019-08-13] MEDS: LORazepam 1mg tab ORAL PRN (02:49)
--- NOTE | 2019-08-13 07:15 | NUR ---
NURSE NOTES: Received report from Ángela Lockwood RN. Patient awake in bed, eating breakfast, oriented x 4, able to make needs known and follow commands. Receiving O2 via nasal cannula @ 2L/min, respirations even and unlabored. Right AC 20g saline lock patent and asymptomatic. Bed locked in lowest position with side rails up x 2. All needs attended to. Call light within reach. Will continue to monitor.
--- NOTE | 2019-08-13 07:37 | NUR ---
HAND-OFF: Report given to MOY Stuart.
[2019-08-13 08:00] VITALS: BP 143/78
[2019-08-13] MEDS: HYDROcodone/Acetamin 10/325 tab ORAL PRN (08:26)
[2019-08-13] MEDS: Heparin 5000 units/ml inj SUBQ SCH (08:30)
[2019-08-13] MEDS: FLUoxetine 10mg cap ORAL SCH (08:30)
[2019-08-13] MEDS: Aspirin Baby 81mg ORAL SCH (08:30)
[2019-08-13] MEDS: guaiFENesin w/Codeine 5ml Liq ud ORAL PRN (08:35)
--- NOTE | 2019-08-13 08:36 | NUR ---
NURSE NOTES: Med recon requested from Dr. Babin for discharge. Patient to go home on home meds and is to be seen by [address] Patient needs to follow up with Dr. Babin outpatient for respiratory issues.
--- NOTE | 2019-08-13 08:55 | NUR ---
NURSE NOTES: Patient requesting pain medication. Per Dr. Babin, call Dr. Mccann. Dr. Mccann contacted, no meds ordered for patient. Dr. Mccann said to take Tylenol PRN for pain. Patient to follow up with primary care doctor for pain medication.
[2019-08-13 12:00] VITALS: BP 137/72
--- NOTE | 2019-08-13 13:37 | Cardiac Electrophysiology PN ---
Assessment/Plan Status Narrative The myocardial perfusion scan demonstrates no definite fixed or reversible perfusion defects. LVEF is estimated at 74%. Assessment/Plan 1. Chest pain. Ruled out for myocardial infarction. However, EKG has inferior T-wave inversion. Echocardiogram EF 60%. Nuclear stress test no ischemia Continue aspirin. LDL only 59. No need for statin 2. Bradycardia. Heart rate was 44 on a 12-lead EKG at 6:15 today, sinus bradycardia. No further ted on telemetry. Avoid any AV ekta chauncey. 3. History of depression, on Prozac and Seroquel. Subjective Subjective No CP or SOB. DC in progress, Refusing sq heparin Objective Last 24 Hour Vital Signs Date Time Temp Pulse Resp B/P (MAP) Pulse Ox O2 Delivery O2 Flow Rate FiO2 08/13/19 09:00 Room Air 08/13/19 08:56 98.4 08/13/19 08:10 66 16 97 Nasal Cannula 2.0 28 08/13/19 08:00 98.4 63 18 143/78 (99) 98 08/13/19 07:58 61 08/13/19 04:22 61 08/13/19 02:00 97.3 63 20 131/65 (87) 98 08/13/19 00:00 65 08/12/19 21:00 Nasal Cannula 2.0 Nasal Cannula 2.0 08/12/19 20:00 97.5 60 20 101/55 (70) 99 08/12/19 20:00 60 08/12/19 16:00 64 08/12/19 16:00 96.8 60 18 91/56 (68) 99 08/12/19 15:59 65 20 98 Nasal Cannula 2.0 28 08/12/19 15:59 68 18 100 Nasal Cannula 2.0 28 65 20 98 Intake and Output 08/12/19 08/13/19 19:00 07:00 Intake Total 600 ml Balance 600 ml Intake Oral 600 ml # Voids 3 Objective HEAD AND NECK: No JVD or carotid bruits. LUNGS: Clear. CARDIOVASCULAR: Regular S1 and S2 with no gallop or murmur. ABDOMEN: Soft. EXTREMITIES: No pitting edema. Alvaro Villavicencio MD Aug 13, 2019 13:37
--- NOTE | 2019-08-13 14:05 | NUR ---
NURSE NOTES: Discharge instructions given to patient and patient verbalized understanding but is refusing to leave without narcotic prescription, demanding that she gets a few days' supply before she sees her primary doctor. Dr. Mccann notified and stated he will arrive in 1 hour to see patient. Patient is agitated and refusing to any further instructions. Patient discharged with all belongings, IV removed, patient ambulated out with steady gait.
--- NOTE | 2019-08-13 14:24 | Pulmonology Progress Note ---
Assessment/Plan Assessment/Plan Progress Note Assessment/Plan: IMPRESSION: 1. Cough. 2. Congestion. 3. Chest pain. 4. Scoliosis. 5. Schizophrenia. PLAN CARE NOTED NEGATIVE CARDIAC STRESS FOR DC HOME CLEARED BY CARDIOLOGY OUTPATIENT FOLLOW UP MONITOR FOR CHANGE HAVE PATIENT FOLLOW UP FOR PFT AFTER DC impression, plan, and exam edited and reviewed in detail care discussed with RN Subjective Allergies: Coded Allergies: PENICILLINS (Unverified Allergy, Unknown, 02/06/17) Uncoded Allergies: PENECILLIN (Allergy, Unknown, 04/21/16) Subjective patient seen earlier negative myocardial perfusion scan Objective Vital Signs Noted Laboratory Tests Noted Pro-B-Type Natriuretic Peptide 29, Triglycerides Level 142, Cholesterol Level 134, LDL Cholesterol 59, HDL Cholesterol 51, Cholesterol/HDL Ratio 2.6L, Thyroid Stimulating Hormone (TSH) 3.046, Free Thyroxine 1.30 Height (Feet): 5 Height (Inches): 5.00 Weight (Pounds): 138 Objective WDWN NAD clear breath sounds bilaterally without rhonchi or wheeze [id number] without MRG NABS nontender no HSM no CCE nonfocal Subjective ROS Limited/Unobtainable: No Allergies: Coded Allergies: PENICILLINS (Unverified Allergy, Unknown, 02/06/17) Uncoded Allergies: PENECILLIN (Allergy, Unknown, 04/21/16) Objective Last 24 Hour Vital Signs Date Time Temp Pulse Resp B/P (MAP) Pulse Ox O2 Delivery O2 Flow Rate FiO2 08/13/19 09:00 Room Air 08/13/19 08:56 98.4 08/13/19 08:10 66 16 97 Nasal Cannula 2.0 28 08/13/19 08:00 98.4 63 18 143/78 (99) 98 08/13/19 07:58 61 08/13/19 04:22 61 08/13/19 02:00 97.3 63 20 131/65 (87) 98 08/13/19 00:00 65 08/12/19 21:00 Nasal Cannula 2.0 Nasal Cannula 2.0 08/12/19 20:00 97.5 60 20 101/55 (70) 99 08/12/19 20:00 60 08/12/19 16:00 64 08/12/19 16:00 96.8 60 18 91/56 (68) 99 08/12/19 15:59 65 20 98 Nasal Cannula 2.0 28 08/12/19 15:59 68 18 100 Nasal Cannula 2.0 28 65 20 98 Intake and Output 08/12/19 08/13/19 19:00 07:00 Intake Total 600 ml Balance 600 ml Intake Oral 600 ml # Voids 3 Current Medications Medications (Trade) Dose Ordered Sig/Alexandre Route PRN Reason Start Time Stop Time Status Last Admin Dose Admin Acetaminophen (Tylenol) 650 mg Q4H PRN ORAL Mild Pain/Temp > 100.5 08/10/19 22:15 09/09/19 22:14 Acetaminophen/ Hydrocodone Bitart ([place] 10/325) 1 tab Q4H PRN ORAL For Pain 08/10/19 22:15 08/17/19 22:14 08/13/19 08:26 Al Hydroxide/Mg Hydroxide (Mylanta) 30 ml Q4H PRN ORAL heartburn 08/10/19 22:15 09/09/19 22:14 08/13/19 08:35 Albuterol Sulfate (Proventil) 2.5 mg Q4H PRN HHN SOB/Wheezing 08/11/19 05:45 08/16/19 05:44 08/12/19 15:56 Aspirin (ASA) 81 mg DAILY ORAL 08/11/19 09:00 09/10/19 08:59 08/13/19 08:30 Fluoxetine HCl (PROzac) 10 mg DAILY ORAL 08/11/19 09:00 09/10/19 08:59 08/13/19 08:30 Guaifenesin/ Codeine Phosphate (Robitussin with codeine) 5 ml Q4H PRN ORAL For Cough 08/11/19 05:45 09/10/19 05:44 08/13/19 08:35 Heparin Sodium (Porcine) (Heparin 5000 units/ml) 5,000 units EVERY 12 HOURS SUBQ 08/11/19 09:00 09/10/19 08:59 08/11/19 08:50 Lorazepam (Ativan) 1 mg Q4H PRN ORAL For Anxiety 08/11/19 21:15 08/18/19 21:14 08/13/19 02:49 Ondansetron HCl (Zofran) 4 mg Q6H PRN IVP Nausea & Vomiting 08/10/19 22:15 09/09/19 22:14 08/11/19 20:14 Pantoprazole (Protonix) 40 mg ACBREAKFAST ORAL 08/11/19 06:30 09/10/19 06:29 08/13/19 06:40 Quetiapine Fumarate (SEROqueL) 100 mg DAILY ORAL 08/11/19 09:00 09/10/19 08:59 08/13/19 08:30 Regadenoson (Lexiscan) 0.4 mg ONCE PRN IV STRESS TEST 08/11/19 09:45 08/13/19 23:59 08/12/19 13:02 Salas Mccann MD Aug 13, 2019 14:24
--- NOTE | 2019-08-16 10:03 | Discharge Summary ---
Discharge Summary Discharge Summary _ DATE OF ADMISSION: 08/10/2019 DATE OF DISCHARGE: 08/13/2019 DISCHARGED BY: Dr. Babin REASON FOR ADMISSION: 60 years old female with past medical history of hypertension, history of smoking, presented with cough, shortness of breath and sputum production. Patient also reported significant chest pain with left-sided chest tightness. Vital signs were stable. Laboratory work-up revealed negative troponin , pro BNP 117. EKG revealed sinus rhythm with inverted T waves in leads 3 and aVF. Chest x-ray revealed no acute cardiopulmonary pathology. Laboratory work-up revealed BUN 28 creatinine 2.6 , otherwise stable electrolytes . No leukocytosis , stable hemoglobin and hematocrit. Urine toxicology screen was positive for marijuana. Patient subsequently admitted for further management. CONSULTANTS: reserve officer Dr. Robert [facility] COURSE: Patient admitted to cardiology floor. Supplemental oxygen was on board as needed to keep pulse oximetry above 92%. Bronchodilator treatment via HHN provded. Antitussive provided as needed. DVT prophylaxis provided. Echocardiogram revealed preserved ejection fraction of 60% with no evidence of left ventricular hypertrophy. No evidence of wall motion abnormalities. Right ventricular systolic pressure of 30. Borderline left ventricular diastolic dysfunction. Repeated troponin was negative. Judge Clerk followed. Patient was ruled out for myocardial infarction. Patient subsequently undergone myocardial perfusion scan , which demonstrated no definite fixed or reversible perfusion defects. Left ventricular ejection fraction estimated to be 74%. Patient noted to be bradycardiac , but no further bradycardia on telemetry. Judge Clerk recommended avoid AV ekta blockers. No need for statin. LDL 59. Antiplatelet therapy with aspirin continued. Renal parameters and electrolytes were closely monitored. Electrolytes corrected as needed. Creatinine from 2.6 down to 1.5 . Acute kidney injury resolved. Home medication continued, including antipsychotic and antidepressant. Supportive care provided. Patient clinically stabilized and was ready for patient was discharged home with home health services. FINAL DIAGNOSES: Chest pain-resolved Cough Congestion Bradycardia -resolved History of depression Schizophrenia Scoliosis DISCHARGE MEDICATIONS: See Medication Reconciliation list. DISCHARGE INSTRUCTIONS: Patient was discharged home with home health services. Follow up with primary care provider in one week. I have been assigned to dictate discharge summary for this account. I was not involved in the patient's management. Dorinda Kahn NP Aug 16, 2019 10:03
--- NOTE | 2019-08-16 13:13 | CDS Physician Query ---
Clarification is required for compliance, coding accuracy, and to reflect severity of illness for this patient Dear Dr. Jin Babin M.D. Date: 08/16/2019 CDS: Marcus Chang This is a 60-year-old female, history of high blood pressure, history of smoking. The patient presents with cough, shortness of breath, sputum production. The patient also has significant chest pain with some left-sided chest tightness as well. The patient is admitted for further care and management and further evaluation. The patient is seen in the emergency room. IMPRESSION: 1. Cough. 2. Congestion. 3. Chest pain. Is there any possibility that pt has COPD? and if so Please clarify if COPD is: [] Acute [] Acute on Chronic [] Chronic [x] Clinically Undetermined Present on Admission: [] Yes [] No [x] Clinically Undetermined Physician signature Date Please also document in your Progress Notes and/or Discharge Summary and indicate if the condition was present on admission MTDD
--- NOTE | 2019-08-16 13:17 | CDS Physician Query ---
PLEASE COMPLETE THE DOCUMENT BEFORE SIGNING Dear Dr. Jin Babin M.D. Date: 08/16/2019 Executive Asst/CDS Name: Marcus Chang This is a 60-year-old female, history of high blood pressure, history of smoking. The patient presents with cough, shortness of breath, sputum production. The patient also has significant chest pain with some left-sided chest tightness as well. The patient is admitted for further care and management and further evaluation. The patient is seen in the emergency room. Exercise your independent professional judgment when responding to query. Clinical Findings Show: Creatinine 2.6--->1.5 BUN 28 Tx: IV SODIUM CHLORIDE Please Clarify the type of renal failure below: Etiology [] ARF w/ Tubular Necrosis [] ARF w/ Cortical Necrosis [] ARF w/ Medullary Necrosis [x] Acute Renal Failure (unspecified) [] Other: If Chronic, please specify the stage: [] CKD Stage 1 [] CKD Stage 2 [] CKD Stage 3 [] CKD Stage 4 [] CKD Stage 5 [] ESRD [x] Not applicable Condition Present on Admission: [x] Yes [] No []Clinically Undeterminable Please also document in your Progress Notes and/or Discharge Summary and indicate if the condition was present on admission. MTDD
== END 2019-08-13 14:05 | disposition home health service (06) | DRG 313 ==
LOC: EMR 18:58 → 2E 19:20 → EDBEDREQ 20:24 → 2E 20:36
DX: R07.9 Chest pain, unspecified (principal); N17.9 Acute kidney failure, unspecified; R00.1 Bradycardia, unspecified; R05 Cough; M41.9 Scoliosis, unspecified; F20.9 Schizophrenia, unspecified; I10 Essential (primary) hypertension; Z87.891 Personal history of nicotine dependence; Z88.0 Allergy status to penicillin
CPT/HCPCS: 36415; 71045; 78452; 80048; 80053; 80061; 80307; 83690; 83880; 84439; 84443; 84484; 85025; 85610; 85730; 93005; 93017; 93306; 93970; 94640; 94664; 96361; 96374; 96375; 96376; 99285; J2405; J2785; J7030